=== PATIENT | female | born 1970 | race Caucasian/White ===

== ENCOUNTER → 2017-07-11 12:06 | Outpatient (CLI) | payer MEDICARE, SELFPAY | PROVIDERS: PCP Family Medicine; Visit Provider Family Medicine | DX: G47.30 Sleep apnea, unspecified (principal); R06.83 Snoring | CPT/HCPCS: 95806 ==

== ENCOUNTER 2022-01-26 18:43 | Observation (INO) | payer MEDICARE, SELFPAY ==
[2022-01-26] VITALS (7 sets, daily range): BP systolic 134–177; BP diastolic 86–114; PULSE 78–87; RESP 17–20; TEMP 36.8; O2SAT 93–96; BMI 28.5
--- NOTE | 2022-01-26 18:51 | PC.NURSE ---
arrived from admission by stretcher from [facility]
--- NOTE | 2022-01-26 19:39 | CT_ITS ---
PROCEDURE INFORMATION: Exam: CT Head Without Contrast Exam date and time: 01/26/2022 8:37 PM Age: 51 years old Clinical indication: Speech disturbance and visual disturbance; Additional info: Change in vision, speech, hypertension urgency TECHNIQUE: Imaging protocol: Computed tomography of the head without contrast. Radiation optimization: All CT scans at this facility use at least one of these dose optimization techniques: automated exposure control; mA and/or kV adjustment per patient size (includes targeted exams where dose is matched to clinical indication); or iterative reconstruction. COMPARISON: No relevant prior studies available. FINDINGS: Brain: Mild atrophy. No intracranial hemorrhage. No mass. Few scattered foci of decreased attenuation within periventricular/subcortical white matter. Probable chronic lacunar infarcts about basal ganglia. No definite edema. Cerebral ventricles: No hydrocephalus. Paranasal sinuses: Complete opacification of visualized RIGHT maxillary sinus. Tiny air-fluid level within RIGHT sphenoid sinus. Mastoid air cells: No significant effusion. Orbital cavities: Unremarkable as visualized. Bones/joints: No acute fracture. Soft tissues: Unremarkable. IMPRESSION: 1. Probable chronic microvascular ischemic changes. If symptoms persist, consider MRI. 2. Sinus disease.
--- NOTE | 2022-01-26 19:42 | ECG_ITS ---
APPROVED REPORT Exam: Resting ECG HR:80 bpm ECG Measurements Heart Rate 80 AXES CO 149 P 29 QRSd 87 QRS 2 QT 405 T -38 QTc 441 Conclusion SINUS RHYTHM POSSIBLE LEFT ATRIAL ENLARGEMENT [-0.1mV P-WAVE IN V1/V2] POSSIBLE ANTERIOR MYOCARDIAL INFARCTION , OF INDETERMINATE AGE [30 ms Q WAVE IN V3/V4, OR R < 0.2 mV IN V4] MODERATE T-WAVE ABNORMALITY, CONSIDER INFERIOR ISCHEMIA [-0.1+ mV T-WAVE IN II/aVF] ABNORMAL ECG UNCONFIRMED REPORT Electronically signed by : Rocky Rehman MD 01/27/2022 21:16:42
--- NOTE | 2022-01-26 19:51 | EXP.HP ---
History of Present Illness *Admission Date: 01/26/22 *Reason for visit:: Elevated blood pressure readings, change in vision, changes in speech. *History of present illness: Ms. Ken is a 51-year-old female with a reported past medical history of uncontrolled HTN, history of Lacunar Infarcts, Anxiety/Depression, Hypothyroidism. She presents from [facility] due to elevated blood pressure readings associated with change in speech and change in vision. The patient was seen upon arrival to our facility. She reports that she initially went into to see her PCP today and her blood pressure was high, she reports that in addition to the high blood pressure readings she was having headaches, difficulty with her speech. Her PCP informed her to go to the ER. Upon evaluation in the ER, the patient had an EKG that showed NSR with rate of [address] segment elevation or depression. Troponin was within normal limits. There is a CTA of the abdomen and pelvis that came from the transferring facility dated 01/13/2002 that shows mild to moderate calcified and noncalcified plaques within in the abdominal aorta which are otherwise normal in caliber. The patient reports that she had Carotid Ultrasounds performed at an office that showed 60% stenosis of the right internal carotid. In the ER at the [facility] documentation shows that the patient had blood pressure readings in the 170 range systolically. She was placed on a Cardene gtt and transferred to the facility with a diagnosis of Hypertensive Crisis. Further work-up will be performed to include a CT of the head, bilateral Carotid US, Echo, EKG, Troponin. Cardiology will be consulted. The plan of care was discussed with the patient on admission. The patient verbalized understanding and agreement with the plan of care. [facility] Medical History (Updated 01/27/22 @ 11:43 by Arin Burks APRN) Abnormal electrocardiogram [ECG] [EKG] Anxiety and depression Atypical angina Calcification of aorta Carotid stenosis CVA (cerebral vascular accident) Degenerative disc disease Dementia DVT (deep venous thrombosis) Fatty liver Headache HTN (hypertension) Hypothyroidism Multiple lacunar infarcts POTS (postural orthostatic tachycardia syndrome) Renal artery stenosis Sequela of lacunar infarction Shortness of Breath Smoker Smoker Tubal ligation evaluation Uncontrolled hypertension Visual disturbance of one eye Surgical History (Updated 01/26/22 @ 20:02 by Ronan Soares DNP) S/P removal of thyroid nodule Family History (Updated 01/26/22 @ 23:01 by Marlee Mark RN) Family history of DVT Family history of hypertension Family history of hyperlipidemia Social History (Updated 01/26/22 @ 23:02 by Marlee Mark, RN) Smoking Status: Current every day smoker alcohol intake: current current occupational status: unemployed Travel in the last 8 weeks: None Review of Systems Review of Systems Review of systems:: pertinent systems reviewed and negative unless documented below Constitutional Constitutional: Reports system reviewed and no additional complaints, except as documented Eyes Eyes: Reports blurry vision and Reports loss of vision ENT Ears, Nose, Mouth, and Throat: Reports system reviewed and no additional complaints, except as documented *Cardiovascular Cardiovascular: Reports dyspnea on exertion *Respiratory Respiratory: Reports dyspnea on exertion *Gastrointestinal Gastrointestinal: Reports system reviewed and no additional complaints, except as documented *Genitourinary Genitourinary: Reports system reviewed and no additional complaints, except as documented *Musculoskeletal Musculoskeletal: Reports system reviewed and no additional complaints, except as documented Integumentary/Breasts Skin/Breast: Reports system reviewed and no additional complaints, except as documented *Neurologic Neurologic: Reports abnormal speech, Reports loss of vision and Reports m
--- NOTE | 2022-01-26 19:55 | PC.NURSE ---
Pt to floor at 1850. Report given to Lena Mark RN.
[2022-01-26 20:13] LABS: Coronavirus 19, PCR Not Detected (NotDetected); Influenza A, PCR Not Detected (NotDetected); Influenza B, PCR Not Detected (NotDetected)
[2022-01-26 20:15] LABS: Basophils # 0.2 K/mm3 (0-0.2); Basophils % 1.3 % (0.1-2.0); Eosinophils # 0.4 K/mm3 (0.0-0.4); Eosinophils % 3.4 % (0.1-12.0); Hematocrit 43.7 % (37.0-47.0); Hemoglobin 13.8 g/dL (12.2-16.2); Lymphocytes # 3.5 K/mm3 (0.7-4.5); Lymphocytes % 26.9 % (10-50); Mean Corpuscular HGB Conc 31.7 g/dL (31.8-35.4); Mean Corpuscular Hemoglobin 32.7 pg (27.0-31.2); Mean Corpuscular Volume 103.5 fl (81-99); Mean Platelet Volume 7.8 fl (7.4-10.4); Monocytes # 0.5 K/mm3 (0.1-1.0); Monocytes % 3.6 % (1.7-9.3); Neutrophils # 8.3 K/mm3 (1.8-7.8); Neutrophils % 64.8 % (37.0-80.0); Platelet Count 408 K/mm3 (142-424); Red Blood Count 4.23 M/mm3 (4.20-5.40); Red Cell Distribution Width 15.2 % (11.5-17.5); White Blood Count 12.9 K/mm3 (4.8-10.8)
[2022-01-26 20:27] LABS: Chloride 98 mmol/L (98-107); Potassium 3.6 mmoL/L (3.5-5.1); Sodium 140 mmol/L (136-145)
[2022-01-26 20:29] LABS: Blood Urea Nitrogen 8 mg/dl (7-17); Creatinine Clearance Estimated 127 mL/min (50-200); Estimated Glomerular Filt Rate 89 ml/min (>60); GFR (African American) 108 ML/MIN (>60)
[2022-01-26 20:30] LABS: Alanine Aminotransferase 27 U/L (12-78); Albumin Level 4.7 g/dl (3.5-5.0); Albumin/Globulin Ratio 1.6 (1.1-1.8); Alkaline Phosphatase 420 U/L (38-126); Anion Gap 16.6 mEq/L (5-15); Aspartate Amino Transferase 38 U/L (14-36); Bilirubin,Total 0.5 mg/dl (0.2-1.3); Carbon Dioxide 29 mmol/L (22.0-30.0); Globulin 2.9 g/dL (1.3-3.2); Glucose 157 mg/dl (74-100); Total Protein,Serum 7.6 g/dl (6.3-8.2)
[2022-01-26 20:39] LABS: NT Pro Brain Natriuretic Pep. 62.7 pg/mL (0-125)
[2022-01-26 20:43] LABS: Troponin I < 0.01 ng/ml (0.00-0.034)
[2022-01-27] VITALS (26 sets, daily range): BP systolic 103–145; BP diastolic 70–99; PULSE 59–75; RESP 15–20; TEMP 36.6–37; O2SAT 90–99
--- NOTE | 2022-01-27 06:00 | US_ITS ---
FINAL REPORT TECHNIQUE: Sonographic images were obtained of the retroperitoneum. CLINICAL HISTORY: hypertensive urgency FINDINGS: The right kidney measures 10.4 cm. The left kidney measures 9.5 cm. There is no evidence of renal mass or hydronephrosis. The spleen measures 10.8 cm. IMPRESSION: No acute process. Reviewed, Interpreted and Dictated by Chinedu Trujillo MD Transcribed by Alex King Authenticated and [facility]
--- NOTE | 2022-01-27 06:27 | PC.NURSE ---
Pt A&O x4. Cardene gtt has remained off since 99. VSS at this time. Pt has had nonproductive cough. Has ambulated to BR with standby assist. Tolerated well. Call light within reach. Pt NPO. Radiology in room performing echo.
--- NOTE | 2022-01-27 07:07 | CA_ITS ---
FINAL REPORT CLINICAL HISTORY: malignant HTN, renal artery stenosis? FINDINGS: Aorta velocity: 91 cm/sec Right kidney: 11.6 cm. No evidence of hydronephrosis or mass. Right intrarenal RI: 0.61 Right renal artery velocity: 183 cm/sec. Right RAR (Renal artery-Aortic Ratio): 2.01 Left Kidney: 11.7 cm. No evidence of hydronephrosis or mass. Left intrarenal RI: 0.59 Left renal artery velocity: 217 cm/sec. Left RAR (Renal Artery-Aortic Ratio): 2.38 IMPRESSION: Less than 60% bilateral renal artery stenosis. CT angiogram or postcontrast MR angiogram would be more sensitive for evaluation of possible renal artery stenosis. Reviewed, Interpreted and Dictated by Chinedu Trujillo MD Transcribed by Alex King Authenticated and [facility]
--- NOTE | 2022-01-27 07:36 | HMH.PHAINT1 ---
Pharmacy Intervention Comments: Medication reconciliation completed via chart review, patient interview, and external fill history. -Emily Dobbs, PharmD Candidate 2022
--- NOTE | 2022-01-27 10:38 | IR_ITS ---
APPROVED REPORT Patient Location: Inpatient Fire Protection Equipment Technician: KENNY Webb RT (R) PROCEDURES Selective coronary angiogram Right internal mammary artery angiography Intravascular ultrasound to the LAD Intravascular ultrasound the circumflex artery INDICATION Known coronary artery disease, Abnormal Myoview, Recurrent angina pectoris Informed consent was obtained prior to the procedure. COMPLICATIONS None Estimated Blood Loss: Less than 10 ML TECHNIQUE One percent lidocaine used to anesthetize the right anterior aspect of the wrist. The right radial artery was accessed via the Seldinger technique. A 6 Maori sheath was placed in the right radial artery. 2.5 mg of verapamil, 800 mcg of nitroglycerin, 1mg Lidocaine and 5000 U Heparin were given through the arterial sheath. The papa catheter was also used to perform selective coronary angiography as well as nonselective engagement of the right internal mammary artery. At the end the diagnostic angiogram therapeutic heparin was administered giving a therapeutic ACT and the guide catheter was placed on left main artery followed by a Choice PT extra-support wire being placed down both the LAD and the circumflex arteries. Intravascular ultrasound was performed which demonstrated wide patency of the ostial circumflex artery and ostial LAD. The stents were widely patent with an MLA of 5.2 in the LAD and greater than 4 in the circumflex artery. Given this did not meet criteria for revascularization apparatus was removed the sheath was removed and hemostasis was achieved using TR banding patient was transferred to the postop putting in stable addition ANGIOGRAPHIC RESULTS The left main artery Normal The left anterior descending artery Has stents in the proximal segment which are widely patent with minimal in-stent restenosis the distal transition of the stent is excellent with a large LAD which wraps the apex. The LAD is minimally diseased with nothing greater than 10% stenosis distal to the stents The circumflex artery Is probably a codominant vessel and large with a stent in the proximal segment which is widely patent. Distal to the stent there is 20 to 30% transitioning into a stenosis. The remaining circumflex artery has diffuse 30% stenosis The right coronary artery Ostially occluded The GREGORIO ventriculogram reveals Not performed The left ventricular end-diastolic pressure Not measured TUSHAR graft is patent to a small distal right coronary IMPRESSION Patent coronary arteries as described above PLAN 1. Continue medical management while maximizing antianginal medications 2. Consider adding or uptitrating Ranexa to a goal of 1000 twice daily Electronically signed by : Dave Edmonds MD 01/27/2022 11:49:26
--- NOTE | 2022-01-27 11:32 | EXP.CARD.CON ---
History of Present Illness History of Present Illness Consult date: 01/27/22 Requesting physician: Marcio Redd Consult reason: shortness of breath Chief complaint: sob and hypertension History of present illness: This is a 51-year-old white female who presented to the emergency department at [facility] with high blood pressure and a change in her vision and speech. The patient states that her blood pressure has been high since December 08, 2021. She reports that she has been to the emergency department at [facility] at least 5 times for her malignant hypertension. She has been seeing Dr. Mcclendon's and she is recently told her that she has renal artery stenosis on the right side of at least 60%. The patient states that her blood pressure was elevated yesterday and just continued to elevate. She states that she noticed a change in her speech and vision. She states that she was also really short of breath with her hypertension. She denied any chest pain or pressure. She states that she does have associated headaches with hypertension as well and is always very difficult for her to speak when her blood pressure gets high. She went to the emergency department because she could not get into her primary care provider's office yesterday. She was then transferred here to [facility] after being started on a Cardene drip for better blood pressure control. This morning she is off of the Cardene drip and her blood pressure is acceptable. She states that she is short of breath with her high blood pressure. She denies chest pain or pressure. She denies any fever, chills, nausea, vomiting, diarrhea, PND or orthopnea. The patient did have a CT of her abdomen within the last year which showed mild to moderate calcified and noncalcified plaques in the abdominal aorta. The patient reports having 60% stenosis of the right renal artery. She reports having a history of lacunar infarcts that were seen on an MRI. She also is treated for hypertension and hyperlipidemia. [facility] Medical History (Updated 01/27/22 @ 11:43 by Arin Burks APRN) Abnormal electrocardiogram [ECG] [EKG] Anxiety and depression Atypical angina Calcification of aorta Carotid stenosis CVA (cerebral vascular accident) Degenerative disc disease Dementia DVT (deep venous thrombosis) Fatty liver Headache HTN (hypertension) Hypothyroidism Multiple lacunar infarcts POTS (postural orthostatic tachycardia syndrome) Renal artery stenosis Sequela of lacunar infarction Shortness of Breath Smoker Smoker Tubal ligation evaluation Uncontrolled hypertension Visual disturbance of one eye Surgical History (Updated 01/26/22 @ 20:02 by Ronan Soares DNP) S/P removal of thyroid nodule Family History (Updated 01/26/22 @ 23:01 by Marlee Mark, RN) Other Family history of DVT Family history of hyperlipidemia Family history of hypertension Social History (Updated 01/26/22 @ 23:02 by Marlee Mark, RN) Smoking Status: Current every day smoker alcohol intake: current current occupational status: unemployed Travel in the last 8 weeks: None Review of Systems Review of Systems Review of systems:: pertinent systems reviewed and negative unless documented below Constitutional Constitutional: Reports system reviewed and no additional complaints, except as documented Eyes Eyes: Reports system reviewed and no additional complaints, except as documented, Reports blurry vision and Reports loss of vision ENT Ears, Nose, Mouth, and Throat: Reports system reviewed and no additional complaints, except as documented *Cardiovascular Cardiovascular: Reports system reviewed and no additional complaints, except as documented, Denies chest pain, Reports dyspnea and Reports dyspnea on exertion *Respiratory Respiratory: Reports system reviewed and no additional complaints, except as documented, Reports dyspnea and Reports dyspnea on exertion *Gastrointestinal Ga
--- NOTE | 2022-01-27 14:10 | EXP.DC.SUM ---
General Admission date:: 01/26/22 Discharge date: 01/27/22 HPI HPI HPI: Ms. Ken is a 51-year-old female with a reported past medical history of uncontrolled HTN, history of Lacunar Infarcts, Anxiety/Depression, Hypothyroidism. She presents from [facility] due to elevated blood pressure readings associated with change in speech and change in vision. The patient was seen upon arrival to our facility. She reports that she initially went into to see her PCP today and her blood pressure was high, she reports that in addition to the high blood pressure readings she was having headaches, difficulty with her speech. Her PCP informed her to go to the ER. Upon evaluation in the ER, the patient had an EKG that showed NSR with rate of [address] segment elevation or depression. Troponin was within normal limits. There is a CTA of the abdomen and pelvis that came from the transferring facility dated 01/13/2002 that shows mild to moderate calcified and noncalcified plaques within in the abdominal aorta which are otherwise normal in caliber. The patient reports that she had Carotid Ultrasounds performed at an office that showed 60% stenosis of the right internal carotid. In the ER at the [facility] documentation shows that the patient had blood pressure readings in the 170 range systolically. She was placed on a Cardene gtt and transferred to the facility with a diagnosis of Hypertensive Crisis. Further work-up will be performed to include a CT of the head, bilateral Carotid US, Echo, EKG, Troponin. Cardiology will be consulted. The plan of care was discussed with the patient on admission. The patient verbalized understanding and agreement with the plan of care. Hospital Course Hospital Course Hospital Course: Ms. Ken is a 51-year-old female who presented to [facility] ER for malignant hypertension. She was started on nicardipine drip and transferred to [facility] for further management of her hypertensive urgency. She has a reported history of renal artery stenosis, so was transferred for evaluation and possible therapeutic intervention. Imaging obtained including renal ultrasound, renal artery duplex, echocardiogram. Cardiology was consulted and the patient was taken to the [employer] Member for further evaluation. No significant coronary artery disease necessitating intervention. Did not have renal artery stenosis significant enough to warrant stent placement. Bilaterally renal arteries less than 50% stenosis. Bilateral carotid duplex showing no significant stenosis. Patient's blood pressure regimen was adjusted, started on HCTZ 25 mg. Increase Toprol 200 mg daily. Continue lisinopril 40. Continue amlodipine 5. Would recommend close follow-up to make further adjustments. Concern with clonidine for anxiety as she may be having rebound hypertension secondary to this medication even though its not intended for her blood pressure. Continued on statin for hyperlipidemia. Discussed benefits of smoking cessation. Patient medically stable for discharge home with close follow-up to further adjust blood pressure regimen. Exam Data for Last 24 hours Vital signs and Labs for Last 24 Hours: Temp Pulse Resp BP Pulse Ox 98.1 F 63 16 132/84 95 01/27/22 11:31 01/27/22 14:00 01/27/22 14:00 01/27/22 14:00 01/27/22 14:00 Laboratory Results - last 24 hr 01/26/22 20:00: WBC 12.9 H, RBC 4.23, Hgb 13.8, Hct 43.7, MCV 103.5 H, MCH 32.7 H, MCHC 31.7 L, RDW 15.2, Plt Count 408, MPV 7.8, Neut % (Auto) 64.8, Lymph % (Auto) 26.9, Hoke % (Auto) 3.6, Eos % (Auto) 3.4, Baso % (Auto) 1.3, Neut # (Auto) 8.3 H, Lymph # (Auto) 3.5, Hoke # (Auto) 0.5, Eos # (Auto) 0.4, Baso # (Auto) 0.2 01/26/22 20:00: Sodium 140, Potassium 3.6, Chloride 98, Carbon Dioxide 29, Anion Gap 16.6 H, BUN 8, Creatinine 0.70, Estimated Creat Clear 127, Estimated GFR 89, Est GFR ( Amer) 108, Glucose 157 H, Calcium 10.0, T
--- NOTE | 2022-01-27 16:30 | HMH.PHAINT1 ---
Pharmacy Intervention Comments: MEDICATION DISCHARGE COUNSELING PROVIDED. DISCUSSED STOPPING THE HYDRALAZINE, CLONIDINE, AND METOPROLOL SUCCINATE 25 MG TAB. START TAKING THE FOLLOWING: METOPROLOL SUCCINATE 100 MG (DAILY, FOR BLOOD PRESSURE, CAN SLOW HEART RATE, DIZZINESS/LIGHTHEADEDNESS POSSIBLE) AND HYDROCHLOROTHIAZIDE 25 MG TAB (DAILY, FOR BLOOD PRESSURE, MAY CAUSE DIZZINESS,LIGHTHEADEDNESS, INCREASED URINATION LIKELY DUE TO ANTIDIURETIC EFFECT SO RECOMMEND TAKING IN THE MORNING). PATIENT VERBALIZED NO QUESTIONS AT THIS TIME.
--- NOTE | 2022-01-27 19:37 | CA_ITS ---
FINAL REPORT TECHNIQUE: Color Doppler, duplex Doppler and de guzman scale sonography of the bilateral neck arterial vasculature was performed. Velocities were measured in the carotid arteries. Stenosis evaluation based on the validated velocity criteria. CLINICAL HISTORY: history of stenosis on right, HTN crisis, HLD, smoker FINDINGS: The peak systolic velocity of the right common carotid artery is 91 cm/s. The peak systolic velocity of the right internal carotid artery is 87 cm/s and end diastolic velocity 40 cm/s. The ICA/CCA ratio is 0.96. A mild amount of plaque is present. The right external carotid artery is patent. The right vertebral artery is patent with antegrade flow. The peak systolic velocity of the left common carotid artery is 92 cm/s. The peak systolic velocity of the left internal carotid artery is 73 cm/s and end diastolic velocity 32 cm/s. The ICA/CCA ratio is 0.79. A mild amount of plaque is present. The left external carotid artery is patent.The left vertebral artery is patent with antegrade flow. IMPRESSION: Less than 50% bilateral carotid stenosis. Bilateral patent vertebral arteries with antegrade flow. If indicated, CTA or MRA could further evaluate. Reviewed, Interpreted and Dictated by Chinedu Trujillo MD Transcribed by Clara Da Silva Authenticated and [facility]
--- NOTE | 2022-01-28 11:46 | CARE MANAGER ---
Spoke with patient for post-discharge phone interview, patient states that she is doing well and has no needs at this time. Patient has follow-up with Dr. Edmonds on 02/15.
== END 2022-01-27 17:35 | disposition home or self-care (01) ==
PROVIDERS: Internal Medicine; Nurse Practitioner Family; Admitting Provider Internal Medicine Adolescent Medicine; PCP Family Medicine; Visit Provider Internal Medicine Adolescent Medicine
DX: I16.0 Hypertensive urgency (principal); I70.1 Atherosclerosis of renal artery; I70.0 Atherosclerosis of aorta; I65.23 Occlusion and stenosis of bilateral carotid arteries; E78.5 Hyperlipidemia, unspecified; I25.118 Atherosclerotic heart disease of native coronary artery with other forms of angina pectoris; F17.210 Nicotine dependence, cigarettes, uncomplicated; R06.9 Unspecified abnormalities of breathing; Z79.899 Other long term (current) drug therapy; Z20.822 Contact with and (suspected) exposure to COVID-19
CPT/HCPCS: G0379; 36252; 36415; 70450; 76770; 80053; 83880; 84484; 85025; 93005; 93306; 93458; 93880; 93976; 99152; C1725; C1769; C9803; G0378; J1644; Q9967; U0003; U0005